=== PATIENT | female | born 1945 | race Caucasian/White ===

== ENCOUNTER → 2018-06-30 11:00 | Emergency (ER) | payer MEDICARE ==
--- NOTE | 2018-06-30 16:14 | RAD ---
INDICATION: Right upper extremity swelling. COMPARISON: There are no relevant prior studies available for comparison. TECHNIQUE: Multiple real-time, color flow and Doppler tracings of the right upper extremity were obtained. FINDINGS: The axillary, brachial, basilic and cephalic veins all demonstrate normal compressibility, augmentation with compression and phasic response with respiration. The radial and ulnar veins demonstrate normal compressibility. The subclavian and internal jugular veins also demonstrate normal color flow imaging and phasic response with respiration. There is edema on the dorsal aspect of the hand. The visualized veins in this region appear patent. IMPRESSION: NO EVIDENCE FOR DEEP VENOUS THROMBOSIS.
--- NOTE | 2018-07-01 07:24 | UC ---
- Progress Note Progress Note: NO DVT ON US. NO CHANGE IN MGMT. F/U ADVISED. Discharge - Sign-Out/Discharge Documenting (check all that apply): Post-Discharge Follow Up All imaging exams completed and their final reports reviewed: Yes - Discharge Plan Referrals: Florian Ferreira DO [Primary Care Provider] -
--- NOTE | 2018-07-04 09:32 | ED ---
Skin Complaint - HPI Summary HPI Summary: 73-year-old woman comes to clinic with a chief complaint of ecchymosis to the posterior right hand which started 2 days ago. She was making a bed and stuck her right hand between the mattress and the headboard and when she pulled her hand out it was swollen and ecchymotic. There is no pain associated with. No weakness no numbness. No skin break. She noticed some bruising in her forearm and her and she your concerned about a blood clot in the arm. No chest pain no shortness of breath. - History of Current Complaint Time Seen by Provider: 07/02/18 22:28 - Allergy/Home Medications Allergies/Adverse Reactions: Allergies Allergy/AdvReac Type Severity Reaction Status Date / Time No Known Allergies Allergy Verified 11/29/17 15:04 PMH/Surg Hx/FS Hx/Imm Hx Previously Healthy: Yes Cardiovascular History: Denies: Hx Pacemaker/ICD Sensory History: Denies: Hx Hearing Aid Psychiatric History: Denies: Hx Panic Disorder - Cancer History Cancer Type, Location and Year: SKIN CA 2006 Hx Chemotherapy: No Hx Radiation Therapy: Yes - NOSE, MELONOMA - Surgical History Surgery Procedure, Year, and Place: HYSTERECTOMY 1989, RT BREAST BIOPSY 1991, SKIN CA REMOVED 2001&2004 &,RT WRIST CARPAL TUNNEL 2009, 2011 SKIN CA ON FACE ,NODULE ON RT FOREARM 2009 Infectious Disease History: Denies: Traveled Outside the [place] in Last 30 Days Review of Systems Constitutional: Negative Eyes: Negative ENT: Negative Cardiovascular: Negative Respiratory: Negative Gastrointestinal: Negative Genitourinary: Negative Musculoskeletal: Negative Positive: Bruising - CHPI Neurological: Negative Psychological: Normal All Other Systems Reviewed And Are Negative: Yes Physical Exam Triage Information Reviewed: Yes Vital Signs Reviewed: Yes Appearance: Positive: Well-Appearing, No Pain Distress, Well-Nourished Skin: Positive: Other Head/Face: Positive: Normal Head/Face Inspection Eyes: Positive: Normal, EOMI, JOHN Neck: Positive: Supple Respiratory/Lung Sounds: Positive: Clear to Auscultation, Breath Sounds Present Cardiovascular: Positive: RRR Musculoskeletal: Positive: Normal, Strength/ROM Intact, Other - No tenderness to palpation right arm. Neurological: Positive: Normal, Sensory/Motor Intact, Alert, Oriented to Person Place, Time, CN Intact II-III Psychiatric: Positive: Normal Course/Dx - Course Course Of Treatment: Ultrasound of the right upper extremity did not show a DVT. Was discussed with the patient. Follow-up primary care doctor recheck sooner if worse. - Diagnoses Provider Diagnoses: Contusion of right arm Discharge - Sign-Out/Discharge Documenting (check all that apply): Patient Departure All imaging exams completed and their final reports reviewed: Yes - Discharge Plan Condition: Stable Disposition: HOME Patient Education Materials: Contusion in Adults (ED) Referrals: Florian Ferreira DO [Primary Care Provider] - - Billing Disposition and Condition Condition: STABLE Disposition: Home - Attestation Statements Document Initiated by Scribe: No
== END | disposition home or self-care (01) ==
LOC: UCEAST 11:00
DX: S40.021A Contusion of right upper arm, initial encounter (principal); W22.03XA Walked into furniture, initial encounter; Y93.9 Activity, unspecified; Y92.003 Bedroom of unspecified non-institutional (private) residence as the place of occurrence of the external cause; M79.89 Other specified soft tissue disorders
CPT/HCPCS: 99211; G0463